=== PATIENT | female | born 1965 | race Caucasian/White ===

== ENCOUNTER 2021-12-10 01:59 | Emergency (ER) | payer BC ==
[~2021-12-10] VITALS: Ht 154.9 cm; Wt 75.7 kg
[2021-12-10 02:05] VITALS: BP 130/78
--- NOTE | 2021-12-10 02:14 | NUR ---
Patient taken to bed 11
--- NOTE | 2021-12-10 02:15 | NUR ---
Dr. Fuentes examining patient.
[2021-12-10] MEDS ORDERED: KETOROLAC 60 MG/2 ML VIAL IM ONE (02:20)
--- NOTE | 2021-12-10 02:28 | NUR ---
Patient taken to X-ray.
--- NOTE | 2021-12-10 02:35 | NUR ---
RETURNED FROM XRAY
[2021-12-10] MEDS ORDERED: NAPR-54 PO (02:49)
--- NOTE | 2021-12-10 03:05 | NUR ---
Patient discharged with v/s stable. Written and verbal after care instructions given and explained. Patient verbalized understanding. Ambulatory with steady gait. All questions addressed prior to discharge. Advised to follow up with PMD.
== END 2021-12-10 03:03 | disposition home or self-care (01) ==
LOC: MED 01:59
DX: S23.3XXA Sprain of ligaments of thoracic spine, initial encounter (principal); J45.909 Unspecified asthma, uncomplicated; Z88.8 Allergy status to other drugs, medicaments and biological substances; X58.XXXA Exposure to other specified factors, initial encounter; Y93.89 Activity, other specified; Y92.89 Other specified places as the place of occurrence of the external cause; Y99.8 Other external cause status
CPT/HCPCS: 72072; 81002; 96372; 99283; J1885